=== PATIENT | female | born 1940 | race Caucasian/White ===

== ENCOUNTER 2016-08-30 17:29 | Emergency (ER) | payer OTHER, MEDICARE ==
[~2016-08-30] VITALS: Ht 157.5 cm; Wt 79.4 kg
[2016-08-30] MEDS ORDERED: LATANOPROST2.5 ML OPH (18:14)
[2016-08-30] MEDS ORDERED: NATURE-THROID65 M1 PO (18:16)
[2016-08-30] MEDS ORDERED: NATURE-THROID32.5 MG PO (18:16)
[2016-08-30 18:39] LABS: ABSOLUTE BASOPHIL COUNT 0 /CUMM (0.0-0.2); ABSOLUTE EOSINOPHIL COUNT 0.1 /CUMM (0.0-0.7); ABSOLUTE GRANULOCYTE CT 7.3 /CUMM (1.4-6.5); ABSOLUTE LYMPH COUNT 1.2 /CUMM (1.2-3.4); ABSOLUTE MONOCYTE COUNT 0.3 /CUMM (0.10-0.60); BASOPHIL % 0.1 % (0.0-2.0); EOSINOPHIL % 0.7 % (0-5); HEMATOCRIT 37.8 % (37-47); MEAN CORPUSCULAR HGB 29.8 PG (27.0-31.0); MEAN CORPUSCULAR VOLUME 87.7 FL (81.0-99.0); MEAN PLATELET VOLUME 9.6 FL (7.4-10.4); PLATELET COUNT 270 /CUMM (130-400); RBC DISTRIBUTION WIDTH 14.6 % (11.5-14.5); RED BLOOD CELL CT 4.31 /CUMM (4.20-5.40); WHITE BLOOD CELL COUNT 8.8 /CUMM (4.8-10.8)
[2016-08-30 18:41] LABS: GRANULOCYTE % 82.7 % (42.2-75.2)
--- NOTE | 2016-08-30 18:52 | ED GI/GU/ABDOMINAL COMPLAINT ---
History of Present Illness General Chief Complaint: Nausea, Vomiting, Diarrhea Stated Complaint: NVD Source: patient, family Exam Limitations: no limitations Vital Signs & Intake/Output Vital Signs & Intake/Output Vital Signs Date Time Temp Pulse Resp B/P Pulse O2 O2 Flow FiO2 Ox Delivery Rate 08/30 2016 96.7 68 16 140/64 95 Room Air 08/30 1921 98 Room Air Room Air 08/30 1729 96.7 64 18 189/81 92 Room Air Allergies Coded Allergies: No Known Allergies (08/30/16) Reconcile Medications Latanoprost 0.005 % DROPS 1 GTT OPH QPM eyes (Reported) Ondansetron HCl (Zofran) 4 MG TABLET 1 TAB PO Q6-8P PRN NAUSEA Thyroid,Pork (Nature-Throid) 32.5 MG TABLET 1 TAB PO DAILY THYROID (Reported) Thyroid,Pork (Nature-Throid) 65 MG TABLET 1 TAB PO D THYROID (Reported) Triage Note: PT BIBA FROM HOME C/C SUDDEN ONSET DIZZINESS FOLLOWED BY N/V. EMS REPORT PT HAS BEEN DRY HEAVING. PT JUST FLEW FROM [place] TO [facility] PLANE APPROX 15:00. PT FELT NORMAL DURING FLIGHT AND ATE EGGPLANT WHILE ON THE PLANE. DENIES ANY PAIN. Triage Nurses Notes Reviewed? yes ? N Is pt currently ? No Onset: Abrupt Duration: constant Timing: multiple episodes today Quality/Severity: moderate Severity Numbers: 5 Radiation: no radiation Activities at Onset: eating HPI: Patient is 76-year-old female the past medical history of hypothyroidism who presents emergency in stating that today patient was on a flight patient HAD AND in-flight MEAL OF eggplant AND 2-3 hours later she had acute onset of nausea and vomiting. Patient has approximately 5-6 episodes of vomiting patient has dizziness associated symptoms. Patient denies any diarrhea Denies any abdominal pain fever chills cough shortness of breath chest pain and arm pain jaw pain hemoptysis leg swelling Denies any dysuria hematuria vaginal bleeding or discharge. Last bowel movement was today no blood no melena no diarrhea (BEHZAD JAIN) Past History Travel History Traveled to [place] past 21 day No Medical History Any Pertinent Medical History? see below for history Neurological: NONE EENT: cataracts Cardiovascular: NONE Respiratory: NONE Gastrointestinal: NONE Hepatic: NONE Renal: NONE Musculoskeletal: osteoarthritis Psychiatric: NONE Endocrine: hypothyroidism Blood Disorders: NONE Cancer(s): NONE BUCKLE SEWER MACHINE/Reproductive: NONE Surgical History Surgical History: hysterectomy Psychosocial History Tobacco Use: Never used ETOH Use: occasional use Illicit Drug Use: denies illicit drug use Family History Hx Contributory? No (BEHZAD JAIN) Review of Systems Review of Systems Constitutional: Reports: no symptoms. EENTM: Reports: no symptoms. Respiratory: Reports: no symptoms. Cardiovascular: Reports: no symptoms. GI: Reports: see HPI, nausea, vomiting. Denies: abdominal pain. Genitourinary: Reports: no symptoms. Musculoskeletal: Reports: no symptoms. Skin: Reports: no symptoms. Neurological/Psychological: Reports: no symptoms. Hematologic/Endocrine: Reports: no symptoms. Immunologic/Allergic: Reports: no symptoms. All Other Systems: Reviewed and Negative (BEHZAD JAIN) Physical Exam Physical Exam General Appearance: no apparent distress, alert, comfortable Gastrointestinal: normal bowel sounds, soft, non-tender Comments: Well-developed well-nourished person in no acute distress HEENT: Normal EENT exam. Neck: Supple, no lymphadenopathy, normal range of motion without pain or tenderness Back: Nontender, no CVA tenderness. Cardiovascular: Regular rate and rhythms no murmurs rubs or gallops, normal JVP Respiratory: Chest nontender. No respiratory distress.breath sounds clear to auscultation bilaterally Abdomen: Soft, nontender nondistended, no appreciable organomegaly. Normal bowel sounds. No ascites Extremity: No edema, no calf tenderness to palpation, normal and equal pulses. Neuro: Alert oriented x3, motor sensory normal, Skin: No appreciable rash on exposed skin, skin is warm and dry. Psych: Mood and affect is normal, memory and judgment is normal. Core Measures ACS in differential dx? Yes Severe Sepsis Present: No Septic Shock Present: No (BEHZAD JAIN) Progress Differential Diagnosis: AAA, AMI, appendicitis, biliary colic, bowel obstruction , colon cancer, cholecystitis, diverticulitis, ectopic , endometritis, esophageal varices, gastritis, hepatitis, hernia, hemorrhoids, ischemic bowel, inflamm bowel dis, intrauterine , kidney stone, Jaci-Jonelle tear, ovarian cyst, ovarian torsion, pancreatitis, PID/cervicitis, peptic ulcer, PUD/ GERD, perforated viscous, SBO, threatened AB, UTI/pyelo Plan of Care: Orders Procedure Date/time Status Add-on Test (ER Only) 08/30 1900 Active LIPASE 08/30 183 Complete AMYLASE 08/30 183 Complete TROPONIN LEVEL 08/31 1827 Complete COMPREHENSIVE METABOLIC PANEL 08/31 1827 Complete CBC WITHOUT DIFFERENTIAL 08/31 1827 Complete EKG 08/30 1739 Active Laboratory Tests 08/30/16 1830: Anion Gap 11, Estimated GFR > 60, BUN/Creatinine Ratio 27.1 H, Glucose 113 H, Calcium 9.6, Total Bilirubin 0.7, AST 34, ALT 34, Alkaline Phosphatase 43, Troponin I < 0.01, Total Protein 7.7, Albumin 4.4, Globulin 3.3, Albumin/ Globulin Ratio 1.3, Amylase 84, Lipase 230 08/30/163: CBC w Diff NO MAN DIFF REQ, RBC 4.31, MCV 87.7, MCH 29.8, RDW 14.6 H, MPV 9.6, Gran % 82.7 H, Lymphocytes % 13.3 L, Monocytes % 3.2, Eosinophils % 0.7, Basophils % 0.1, Absolute Granulocytes 7.3 H, Absolute Lymphocytes 1.2, Absolute Monocytes 0.3, Absolute Eosinophils 0.1, Absolute Basophils 0, PUBS MCHC 34.0 08/30/2016 7:48:46 PM Patient had significant resolution of nausea however the IV did infiltrate were patient had discomfort in which this was taken out. Patient still resting comfortably Due to history of present illness and exam findings or suspicion of gastritis due to ingestion of airplane eggplant meal that most likely cause symptoms of nausea and vomiting. Patient has nontender abdomen denies any cardiovascular or respiratory complaints at this time. Patient was able tolerate by mouth upon discharge. Patient had nontender abdomen while in the emergency room upon discharge patient looks well no apparent distress and will comply with discharge instructions and had NO QUESTIONS (BEHZAD JAIN) Initial ED EKG: normal p-waves, normal QRS complex, normal sinus rhythm, SINUS RHYTHM 58 BPM (BEHZAD JAIN) Departure Departure Disposition: HOME OR SELF CARE Condition: Stable Clinical Impression Primary Impression: Nausea and vomiting Secondary Impressions: Gastritis Referrals: MARK TORRE,MIKE SUERO MD,AGNES (PCP/Family) Additional Instructions: As discussed begin a 24-hour clear liquid and bland diet to rest your bowels. Begin the prescription of Zofran for future nausea. If no improvement in 2 days follow-up and establish a mail forwarding system markup clerk DR. FLORES. If symptoms worsen return to emergency room Prescriptions are waiting at [facility] pharmacy Departure Forms: Customer Survey General Discharge Information Prescriptions: Current Visit Scripts Ondansetron HCl (Zofran) 1 TAB PO Q6-8P PRN NAUSEA #15 TAB (BEHZAD JAIN) PA/DEGREASER Co-Sign Statement Statement: ED Attending supervision documentation- [X] I saw and evaluated the patient. I have also reviewed all the pertinent lab results and diagnostic results. I agree with the findings and the plan of care as documented in the PA's/DEGREASER's documentation. [X] I have reviewed the ED Record and agree with the PA's/DEGREASER's documentation. [] Additions or exceptions (if any) to the PAs/DEGREASER's note and plan are summarized below: [] (JORGE TORRE,RAINER Morel)
[2016-08-30 20:17] VITALS: BP 140/64
[2016-08-30] MEDS ORDERED: ZOFRAN4 M2 PO (20:31)
== END 2016-08-30 20:53 ==
LOC: ERH 17:29
PROVIDERS: Emergency Medicine
DX: K29.70 Gastritis, unspecified, without bleeding (principal); E03.9 Hypothyroidism, unspecified
CPT/HCPCS: 93005; 93010; 96374; J2405